=== PATIENT | male | born 1955 ===

== ENCOUNTER 2021-05-25 10:12 | Outpatient (CLI) | payer MEDICARE, MEDICAID, SELFPAY ==
--- NOTE | ~2021-05-25 | XR_ITS ---
XR chest 2V DATE: 05/25/2021 10:55 INDICATION: COPD, smoker TECHNIQUE: `PA and lateral views COMPARISON: None FINDINGS: Normal heart size. No hilar or mediastinal enlargement. No pulmonary infiltrate or consol idation, pulmonary vascular congestion, pleural effusion or pneumothorax. IMPRESSION: No active cardiopulmonary disease Reviewed, dictated and finalized at location B. OPERATOR
--- NOTE | ~2021-05-25 | XR_ITS ---
EXAMINATION: XR lumbar spine min 4V DATE: 05/25/2021 10:55 INDICATION: Low back pain TECHNIQUE: Anteroposterior, lateral, and bilateral oblique views of the lumbar spine, and cone-down l ateral view of the lumbosacral junction were obtained. COMPARISON: None. FINDINGS: There are 3 mm of retrolisthesis of L5 on S1. Bone alignment is otherwise normal. There is no fracture. There is mild loss of intervertebral disc space height throughout the lumbar spine. Smal l degenerative osteophytes project from the anterior endplates of multiple vertebral bodies. There is mild facet osteoarthritis of the lower lumbar spine. Calcified atherosclerosis is noted. IMPRESSION: 1. Moderate lumbar spondylosis without acute findings. Reviewed, dictated and finalized at location A. ER AND COMPRESSOR ASSEMBLER
== END 2021-05-25 10:13 | disposition home or self-care (01) ==
LOC: ANHIMG 10:24
PROVIDERS: PCP Family Medicine; Visit Provider Family Medicine
DX: J44.9 Chronic obstructive pulmonary disease, unspecified (principal); M47.896 Other spondylosis, lumbar region
CPT/HCPCS: 71046; 72110

== ENCOUNTER 2021-09-28 10:00 | Outpatient (RCR) | payer MEDICARE, MEDICAID, SELFPAY ==
--- NOTE | 2021-08-03 09:13 | PTOPEVAL ---
Thank you for referring Angel Laird to [facility].? The patient is scheduled to be seen for therapy?1 x/week for 6 weeks. Please review, sign, date and return this plan of care DELISA. I agree with and certify that the following plan of care is medically necessary. Referring Physician Date Attending Provider: Pamela Burrows MD Referring Provider: Pamela Burrows MD Diagnosis CVA Onset 5 yrs ago Additional Evaluation Detail He has persistent issues with balance and hand clumsiness. He is also having burning sensation and numbness in both feet. He has not been able to get to physical therapy. Subjective Information He report he had a fall ~ 1 Query Text:As Reported By Patient/ month ago. Family He uses a walker for mobility. He is indep with functional mobility and amb with AD. He sleeps on the couch. His roommate completes grassland conservationist. 2 ABHAY with railing on part of steps. He has a ww and transport wc at home. He performs limited activities at home with most of his time on the couch. He had therapy initially after his CVA. Pain Assessment Lower Back Reported Pain Level 7 Lower Extremity Range of Motion General Lower Extremity Range of Motion Gross Lower Extremity Range of Motion left ankle DF neutral, right Comments ankle DF: -8 dg Cervical and Lumbar Muscle Testing Lumbar Strength Upper Abdominal Strength 3-Fair- Lower Abdominal Strength 3-Fair- Upper Back Extension 3-Fair- Lower Back Extension 3-Fair- Lumbar Functional Strength Comments unable to achieve upright trunk position in standing Lower Extremity Muscle Strength Testing Hip Strength Right Hip Flexion Strength 3+ Fair + Hip Extension Strength 2+ Poor + Hip Abduction Strength 2 Poor Hip Adduction Strength 2 Poor Left Hip Flexion Strength 3+ Fair + Hip Extension Strength 2+ Poor + Hip Abduction Strength 2 Poor Hip Adduction Strength 2 Poor Knee Strength Right Knee Flexion Strength 3- Fair - Knee Extension Strength 4- Good - Left Knee Flexion Strength 3- Fair - Knee Extension Strength 4- Good - Ankle Strength Right Ankle Dorsiflexion Strength 4- Good - Ankle Eversion Strength
--- NOTE | 2021-08-24 11:42 | PTOPEVAL ---
Physical Therapy Progress Note Thank you for referring Angel Laird to [facility].? Pt referred to therapy due to buttermaker continuous churn impairments related to CVA ~5 yrs ago. He has attended 4 therapy visits since 08/03/21. He demonstrates decline with functional mobility for balance, ambulation and functional mobility. Demonstrates slight improved LE strength but not able to demonstrate functional changes. He demonstrates significant impairments with LE ROM, LE weakness, decreased posture, balance impairments, functional mobility impairments, and increased LE tone. 5x sit<>stand: 28 sec with ww, decreased to 58 sec 2 min walk test: 10 ft with ww, rm 5 ft today Martinez balance: , declined to Assessment: Pt presents to therapy with impairments consistent with buttermaker continuous churn CVA limitations with force production impairment, joint restriction, abnormal tone, and muscle weakness. He is at a 100% risk for falls based on his objective assessment. He requires additional skilled therapy services to address his functional limitations, improve his mobility and provide skilled teaching for a HEP and necessary equipment. He would benefit from AFO to improve his ankle/LE support and position with ambulation. The patient is scheduled to be seen for therapy? 1 x/week for 4 weeks. Please review, sign, date and return this plan of care DELISA. I agree with and certify that the following plan of care is medically necessary. Referring Physician Date Attending Provider: Pamela Burrows MD Referring Provider: Pamela Burrows MD Diagnosis CVA Onset 5 yrs ago Additional Evaluation Detail He has persistent issues with balance and hand clumsiness. He is also having burning sensation and numbness in both feet. He has not been able to get to physical therapy. Subjective Information Denies any falls since Query Text:As Reported By Patient/ starting therapy. He is Family walking with his walker 2-3x/ day for 10-15 ft. States he is performing his HEP. Pain Assessment Lower Back Reported Pain Level 6 Pain Description Aching Pain Frequency Chronic,Continuous Pain Score Pain Score 6: Self Report Lower Extremity Muscle Strength Testing Hip Strength Right Hip Flexion Strength 3+ Fair + Left Hip Flexion Strength 3+ Fair + Knee Strength Right Knee Flexion Strength 3- Fair - Knee Extension Strength 4 Good Knee Strength Comments hamstring tested seated Left Knee Flexion Strength 3+ Fair + Knee Extension Strength 4- Good - Knee Strength Comments hamstring tested seated Ankle Strength Right Ankle Dorsiflexion Strength 4 Good Ankle Eversion Strength 4- Good - Ankle Inversion Strength 3 Fair Left Ankle Dorsiflexion Strength 4 Good Ankle Eversion Strength 4 Good
--- NOTE | 2021-09-28 11:00 | PTOPEVAL ---
PHYSICAL THERAPY DISCHARGE REPORT 09-28-21 Refer to the clinical summary below, for his status today, compared to the last reeval. Discharge PT services; the goals were partially met. He is to continue with his HEP and increase walking/activity as tolerated. Thank you for referring Angel Laird to [facility] [place]. Please review, sign, date and return this plan of care DELISA. I agree with and certify that the following plan of care is medically necessary. 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 Query Text:As Reported By Patient/ report: has not had any falls Family at home; is using the walker when walking; goes 10-15' in the house; when Jhoan is at work, he stays on the couch and does not do anything; also sleeps on the couch, which is broken down and looking for another couch; Pain Assessment Pain Scale Pain Scale Used Numeric (1 - 10) Self Report Pain Assessment Lower Back Reported Pain Level 7 Pain Description Aching Pain Frequency Chronic,Continuous Pain Score Pain Score 7: Self Report Additional Pain Score Comments reinforced positioning changes during day, to decrease pain-- NOT stay on couch all day and not do anything; Interventions Used Interventions Used By Clinicians Education,Electrical Stimulation,Exercise,Heat Pain Relief Interventions Used By Lying Supine Patient Gross Lower Extremity Strength functional strength testing: - sitting: ankle DF R to (-10 ')/ L to 0' x 15 reps;R and L knee extension to 0' x 10 reps; R and L hip flexion x 12 reps - side lying hip abduction L to 0-5' x 10/ R to 0' x 8 reps ; verbal review of HEP, added: sitting: ankle pumps, knee ext , hip flexion and side lying hip abduction; reinforced increased walking at home; Martinez Balance Assessment Sitting to Standing Independent w/Hands Unsupported Stance Ability Several Tries, 30 seconds Sitting Unsupported, Feet on Floor Safely- 2 minutes Standing to Sitting
== END 2021-09-29 10:16 | disposition home or self-care (01) ==
LOC: ANHPT 10:00
PROVIDERS: PCP Family Medicine; Referring Provider Family Medicine; Visit Provider Family Medicine
DX: R26.89 Other abnormalities of gait and mobility (principal); I63.9 Cerebral infarction, unspecified
CPT/HCPCS: 97014; 97110; 97112; 97116; 97162; 97530; G0283

== ENCOUNTER 2023-02-16 13:39 | Outpatient (CLI) | payer MEDICARE, MEDICAID, SELFPAY ==
[2023-02-16 14:41] LABS: Basophils Percent Auto 0.6 % (0.2-1.2); Eosinophils Absolute Auto 0.2 K/mm3 (0-0.3); Eosinophils Percent Auto 2.4 % (0-4.4); Hematocrit 43.6 % (42.0-52.0); Hemoglobin 14.3 g/dL (14.0-18.0); Immature Granulocyte Absolute 0.02 K/mm3 (0.00-0.031); Immature Granulocyte Percent A 0.3 % (0-0.5); Lymphocytes Absolute Auto 1.86 K/mm3 (0.9-3.2); Lymphocytes Percent Auto 27.6 % (18.3-44.2); Mean Corpuscular HGB Conc 32.8 g/dl (32-36); Mean Corpuscular Hemoglobin 31.7 pg (26-34); Mean Corpuscular Volume 96.7 fl (80-100); Mean Platelet Volume 8.9 fl (7.4-10.4); Monocytes Absolute Auto 0.5 K/mm3 (0.1-0.6); Monocytes Percent Auto 7.4 % (2.6-8.5); Neutrophils Absolute Auto 4.2 K/mm3 (1.3-6.7); Neutrophils Percent Auto 61.7 % (45.5-73.1); Platelet Count Result 264 k/mm3 (150-375); Red Blood Count 4.51 M/mm3 (4.6-6.20); Red Cell Distribution Width 13.3 % (11.5-14.5); White Blood Count 6.8 K/mm3 (4.5-10.0)
[2023-02-16 14:57] LABS: Alanine Aminotransferase 20 U/L (6-50); Albumin Level 4.4 g/dL (3.5-5.1); Alkaline Phosphatase 76 U/L (38-126); Anion Gap 12 mmol/L (8-16); Aspartate Amino Transferase 28 U/L (17-59); Bilirubin,Total 0.8 mg/dL (0.2-1.3); Blood Urea Nitrogen 17 mg/dL (9-20); Calcium 9.7 mg/dL (8.4-10.2); Carbon Dioxide 21 mmol/L (22-30); Chloride 101 mmol/L (98-107); Cholesterol 164 mg/dL (0-200); Estimated Glomerular Filt Rate > 60; Glucose 74 mg/dL (65-110); HDL Direct 44 mg/dL; Potassium 4.5 mmol/L (3.4-5.0); Sodium 134 mmol/L (137-145); Triglycerides 89 mg/dL (<150)
[2023-02-16 15:08] LABS: LDL Cholesterol Direct 88 mg/dL
[2023-02-16 15:27] LABS: Prostate Specific Antigen 1.2 ng/mL (< OR = 4.0)
== END 2023-02-16 13:40 | disposition home or self-care (01) ==
LOC: ANHLAB 13:45
PROVIDERS: PCP Family Medicine; Visit Provider Physician Assistant Medical
DX: Z12.5 Encounter for screening for malignant neoplasm of prostate (principal); D64.9 Anemia, unspecified; E78.2 Mixed hyperlipidemia; E53.8 Deficiency of other specified B group vitamins
CPT/HCPCS: 36415; 80053; 80061; 82607; 84153; 85025; G0103

== ENCOUNTER 2024-06-22 23:33 | Inpatient (IN) | payer OTHER, SELFPAY ==
--- NOTE | ~2024-06-22 | CT_ITS ---
CT OF right shoulder EXAMINATION: CT shoulder RT wo con DATE: 06/23/2024 17:45 INDICATION: Fracture TECHNIQUE: Computed tomography (CT) of the right shoulder was performed without intravenous contrast. Automated exposure control and iterative reconstruction technique were employed. The dose-length pro duct was 184.38 mGy-cm. COMPARISON: X-ray right shoulder, same date FINDINGS: Limitations: None Bones: The AC joint and glenohumeral joint are aligned. Comminuted fracture of the distal clavicle, w ith one half shaft width anterior displacement and anterior angulation of the distal dominant fragmen t. Multiple distracted fragments are noted inferiorly. The distance between the coracoid and majority of the clavicle is increased measuring 17 mm. One of the inferior fragments probably represents infe rior avulsion of the origin of the coracoclavicular ligament. Fracture lines run close to but not def initively within the AC joint. There are no erosive or destructive bony lesions. Soft Tissues: Soft tissue swelling about the distal clavicle. No evidence of mass or fluid collectio n. Fluid: No significant fluid within the joint capsule or surrounding bursal spaces. IMPRESSION: Comminuted, mildly displaced and angulated extra-articular fracture of the distal clavicle, with like ly avulsion of the origin of the coracoclavicular ligament. Reviewed, dictated and finalized at location K. IMPRESSION: Comminuted, mildly displaced and angulated extra-articular fracture of the dist al clavicle, with likely avulsion of the origin of the coracoclavicular ligamen t.
--- NOTE | ~2024-06-22 | US_ITS ---
RIGHT LOWER EXTREMITY VENOUS ULTRASOUND Ordering provider: Vaishali Sanchez APRN History: . Pain . Comparison: None. FINDINGS: --COMMON FEMORAL: Patent and free of thrombus. Normal compressibility, phasic flow and augmentation. --PROXIMAL SUPERFICIAL FEMORAL: Patent and free of thrombus. Normal compressibility, phasic flow and augmentation. --DISTAL SUPERFICIAL FEMORAL: Patent and free of thrombus. Normal compressibility, phasic flow and au gmentation. --POPLITEAL: Patent and free of thrombus. Normal compressibility, phasic flow and augmentation. --POSTERIOR TIBIAL: Patent and free of thrombus. Normal compressibility, phasic flow and augmentation . IMPRESSION: Negative right lower extremity venous US. No deep vein thrombosis. Reviewed, dictated and finalized at location A.
--- NOTE | ~2024-06-22 | XR_ITS ---
Right elbow Technique: AP and lateral views were obtained. Clinical History: Pain Findings: No acute fracture or dislocation is seen. Osseous alignment is anatomic. Joint spaces are p reserved. There is no displacement of the fat pads, and soft tissues are unremarkable. Impression: Unremarkable radiographs. Reviewed, dictated and finalized at location . Impression: Unremarkable radiographs.
--- NOTE | ~2024-06-22 | CT_ITS ---
Non-contrast Head CT History: Head injury Technique: Axial non-contrast imaging of the brain was performed. Dose reduction technique was used on this scan by utilizing automated exposure control and iterative reconstruction technique. The dose -length product (DLP) was 983.67 mGy-cm. Findings: There is no evidence of intracranial hemorrhage, mass lesion, or acute infarct. Brain par enchyma appears normal. The ventricles and subarachnoid spaces are normal in size. The calvarium ap pears normal. The visualized paranasal sinuses and mastoid air cells are clear. Impression: No significant abnormality seen. Reviewed, dictated and finalized at location . Impression: No significant abnormality seen.
--- NOTE | ~2024-06-22 | XR_ITS ---
Right Shoulder Technique: AP and scapular Y views were obtained. Clinical History: Pain Findings: There is acute fracture of the distal clavicle, minimally displaced. No other fracture or d islocation seen. Osseous alignment is anatomic. The glenohumeral and acromioclavicular joint spaces a re preserved. Soft tissues are unremarkable. Impression: Acute mildly displaced fracture of the distal right clavicle. Reviewed, dictated and finalized at location . Impression: Acute mildly displaced fracture of the distal right clavicle.
--- NOTE | ~2024-06-22 | CT_ITS ---
CT Scan of the Chest without Contrast: Clinical Indication: Status post fall, scapular fracture Technique: Contiguous sections were acquired throughout the chest without intravenous contrast. Dose reduction technique was used on this scan by utilizing automated exposure control and iterative recon struction technique. The dose-length product (DLP) was 252.86 mGy-cm. Findings: There is no evidence of any significant mediastinal, hilar or axillary lymphadenopathy. Coronary billy ry calcifications are present.. Pectus excavatum deformity noted. There is no evidence of pleural or pericardial effusion. The lungs are clear. No pulmonary nodules or infiltrates are noted. Images through the upper abdomen reveal no abnormalities. Partially imaged comminuted acute fracture the distal right clavicle noted. Impression: Partially imaged acute fracture of the distal right clavicle. Pectus excavatum deformity. Reviewed, dictated and finalized at [facility]. Impression: Partially imaged acute fracture of the distal right clavicle. Pectus excavatum deformity.
--- NOTE | ~2024-06-22 | XR_ITS ---
XR hip RT 2V w AP pelvis Ordering provider: Vaishali Sanchez APRN History: . Trauma . Comparison: None. FINDINGS: BONES: No acute fracture or dislocation. HIP JOINT SPACES: Severe narrowing of both hips. SACROILIAC JOINT SPACES/LUMBAR SPINE: The sacroiliac joint spaces are normal. Mild degenerative toscano es of the visualized lower lumbar spine. PUBIC SYMPHYSIS: Normal. SOFT TISSUES: Normal. IMPRESSION: No acute osseous abnormality pelvis and right hip. Bilateral severe hip osteoarthritic changes Reviewed, dictated and finalized at location A. IMPRESSION: No acute osseous abnormality pelvis and right hip. Bilateral severe hip osteoar thritic changes
--- NOTE | ~2024-06-22 | XR_ITS ---
AP and lateral views of the right tibia/fibula Clinical History: Trauma Findings: No acute fracture or dislocation is seen. Osseous alignment is anatomic. Joint spaces are p reserved without significant erosive or degenerative change. Soft tissues are unremarkable. Impression: Unremarkable right tib-fib radiographs. Reviewed, dictated and finalized at [facility]. Impression: Unremarkable right tib-fib radiographs.
--- NOTE | ~2024-06-22 | CT_ITS ---
Noncontrast CT scan of the cervical spine Technique: Multiple contiguous axial [address] images of the cervical spine were obtained and rec onstructed in 2D sagittal and coronal planes on the acquisition scanner. Dose reduction technique was used on this scan by utilizing automated exposure control, adjustment of the mA and/or kV according to patient size. The dose-length product (DLP) was 213.59 mGy-cm. Clinical History: Pain Findings: No fractures or dislocations in the cervical spine. There is acute fracture of the distal clavicle, comminuted and mildly displaced. There is mild reversal of normal cervical lordosis. There is severe degenerative disc narrowing at C5-C6 and C6-C7. There is moderate degenerative disc narrowi ng at C3-C4 and C4-C5. There is degenerative change at the articulation of the odontoid process with the anterior arch of C1. There is right facet arthropathy at C2-C3 with minimal right neural foramina l narrowing. There is prominent left facet arthropathy at C3-C4 with left neural foraminal narrowing. There is mild right neural foraminal narrowing as well. Probable mild canal stenosis with posterior disc bulge at this level. At C4-C5, there is bilateral facet arthropathy, bilateral neural foraminal narrowing. There is minima l disc bulge with possible minimal canal stenosis. At C5 and C6, there is mild facet arthropathy with disc ossify complex with bilateral neural foramina l narrowing and moderate canal stenosis. At C6-C7, there is disc ossify complex with severe bilateral neural foraminal narrowing and moderate to severe canal stenosis. No prevertebral soft tissue swelling. Impression: No fracture or subluxation of the cervical spine. Acute fracture of the distal right clavicle, as detailed above. Severe degenerative spondylosis, as above. Reviewed, dictated and finalized at [facility]. Impression: No fracture or subluxation of the cervical spine. Acute fracture of the distal right clavicle, as detailed above. Severe degenerative spondylosis, as above.
[2024-06-22 23:35] VITALS: PULSE 87; RESP 16; TEMP 37.1; O2SAT 99
[2024-06-22 23:48] VITALS: BP 122/80; PULSE 81; RESP 15; O2SAT 100
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
[2024-06-23] MEDS: HYDROcodone/acetaminophen (*CRX) 5-325 MG TABLET 1 TAB PO ×4 (02:01→18:59)
[2024-06-23] MEDS: TETANUS,DIPHTHERIA,AC PERTUSSIS ADULT (0.5 ML) BOOSTRIX IM (02:01)
[2024-06-23 02:05] VITALS: PULSE 68; RESP 15; O2SAT 100
[2024-06-23 03:46] LABS: Basophils Percent Auto 0.2 % (0.2-1.2); Eosinophils Absolute Auto 0.1 K/mm3 (0-0.3); Eosinophils Percent Auto 0.9 % (0-4.4); Hematocrit 37.4 % (42.0-52.0); Hemoglobin 12.5 g/dL (14.0-18.0); Immature Granulocyte Absolute 0.05 K/mm3 (0.00-0.031); Immature Granulocyte Percent A 0.5 % (0-0.5); Lymphocytes Absolute Auto 0.95 K/mm3 (0.9-3.2); Lymphocytes Percent Auto 10.1 % (18.3-44.2); Mean Corpuscular HGB Conc 33.4 g/dl (32-36); Mean Corpuscular Hemoglobin 31.3 pg (26-34); Mean Corpuscular Volume 93.7 fl (80-100); Mean Platelet Volume 8.7 fl (7.4-10.4); Monocytes Absolute Auto 0.6 K/mm3 (0.1-0.6); Monocytes Percent Auto 6.6 % (2.6-8.5); Neutrophils Absolute Auto 7.7 K/mm3 (1.3-6.7); Neutrophils Percent Auto 81.7 % (45.5-73.1); Platelet Count Result 196 k/mm3 (150-375); Red Blood Count 3.99 M/mm3 (4.6-6.20); Red Cell Distribution Width 13.5 % (11.5-14.5); White Blood Count 9.4 K/mm3 (4.5-10.0)
[2024-06-23 03:48] VITALS: BP 128/60; PULSE 69; RESP 15; O2SAT 100
[2024-06-23] MEDS: MORPHINE SULFATE (*CRX) 2 MG/ML INJ IV PUSH ×2 (03:50→10:21)
[2024-06-23] MEDS: ONDANSETRON INJ 4 MG/2 ML VIAL IV PUSH (03:50)
[2024-06-23 03:56] LABS: Alanine Aminotransferase 32 U/L (6-50); Albumin Level 3.8 g/dL (3.5-5.1); Alkaline Phosphatase 120 U/L (38-126); Anion Gap 8 mmol/L (4-12); Aspartate Amino Transferase 34 U/L (17-59); Bilirubin,Total 0.5 mg/dL (0.2-1.3); Blood Urea Nitrogen 19 mg/dL (9-20); Calcium 9.4 mg/dL (8.4-10.2); Carbon Dioxide 27 mmol/L (22-30); Chloride 100 mmol/L (98-107); Estimated CRCL calculation 80 ml/min; Estimated Glomerular Filt Rate > 60; Glucose 103 mg/dL (65-110); Potassium 4.3 mmol/L (3.4-5.0); Sodium 135 mmol/L (137-145)
[2024-06-23 06:30] VITALS: BMI 18.1
--- NOTE | 2024-06-23 06:37 | ADMGEN ---
This patient, Angel Laird, was admitted to Medical Room 245-. Patient/family oriented to hospital policies and general routines including ID bracelet, bed and alarms, visiting hours, pain management, procedures, bathroom and other care routines, personal items, smoking policy, room service/diet, and visiting hours. Information on how to activate the Rapid Response Team has been discussed. Patient/Family are encouraged to report perceived risks to care and to ask questions if they do not understand what they are told or what they should do.
[2024-06-23 06:58] VITALS: BP 104/61; PULSE 71; RESP 18; TEMP 36.9; O2SAT 96
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
[2024-06-23] MEDS: NICOTINE (*PBKC) 21 MG PATCH 1 PATCH TRANSDERM (09:29)
[2024-06-23] MEDS: PANTOPRAZOLE 40 MG TABLET PO (09:29)
--- NOTE | 2024-06-23 10:49 | PCOTNOTE ---
PT attempted to work with pt but pt was unable to weightbear onto R LE and complains of increased pain there. Pt has not had any imaging done of that leg. Pt is also waiting on an ortho consult for his R clavicle fx so will hold OT eval at this time.
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
--- NOTE | 2024-06-23 15:32 | PC.NURSE ---
On 06/23/24, the ENTRY LEVEL PARALEGAL, Amanda Chinchilla, provided care and completed Ember documentation on this patient. I have reviewed the ENTRY LEVEL PARALEGAL's documentation and agree with the findings.
[2024-06-23 16:02] VITALS: BP 103/59; PULSE 64; RESP 18; TEMP 36.3; O2SAT 96
[2024-06-23 23:30] VITALS: BP 126/52; PULSE 68; RESP 16; TEMP 36.8; O2SAT 96
[2024-06-24] MEDS: HYDROcodone/acetaminophen (*CRX) 5-325 MG TABLET 1 TAB PO ×3 (06:11→20:10)
[2024-06-24 06:18] VITALS: BP 120/69; PULSE 80; RESP 16; TEMP 37.1; O2SAT 94
--- NOTE | 2024-06-24 07:39 | P.PNIM_ITS ---
Progress Note: A&P Assessment and Plan (1) Closed fracture of distal clavicle: Qualifiers: Encounter type: initial encounter Fracture alignment: displaced Laterality: right Qualified Code(s): S42.031A - Displaced fracture of lateral end of right clavicle, initial encounter for closed fracture Code(s): S42.033A - Displaced fracture of lateral end of unspecified clavicle, initial encounter for closed fracture Status: Acute Assessment and Plan: Patient with mechanical fall to right shoulder * Imaging: Acute mildly displaced fracture of the distal right clavicle * Pain control * Sling placed * Ortho consulted * PT/OT uses walker for ambulation may need rehab for placement 06/24/24: * Seen by ortho no surgical inntervention F/U O/P in their clinic * Tib/FIb with no acute fractures (2) Fracture of scapular body: Qualifiers: Encounter type: initial encounter Fracture alignment: nondisplaced Fracture type: closed Laterality: right Qualified Code(s): S42.114A - Nondisplaced fracture of body of scapula, right shoulder, initial encounter for closed fracture Code(s): S42.113A - Displaced fracture of body of scapula, unspecified shoulder, initial encounter for closed fracture Status: Acute Assessment and Plan: SEE ABOVE (3) Alcohol abuse: Code(s): F10.10 - Alcohol abuse, uncomplicated Status: Acute Assessment and Plan: * Last drink 48hrs * Thiamine, folic acid, and multi-vitamin * PPI daily * librium if indicated * Ativan PRN for seizure activity * CIWA daily * Monitor and replenish electrolytes as needed (4) Hyperlipidemia: Qualifiers: Hyperlipidemia type: mixed hyperlipidemia Qualified Code(s): E78.2 - Mixed hyperlipidemia Code(s): E78.5 - Hyperlipidemia, unspecified Status: Acute Assessment and Plan: * Resume statin (5) Arthritis: Code(s): M19.90 - Unspecified osteoarthritis, unspecified site Status: Acute Assessment and Plan: * Resumed Baclofen (6) Fall from ground level: Code(s): W18.30XA - Fall on same level, unspecified, initial encounter Status: Acute Assessment and Plan: * Mechanical fall * PT/OT (7) COPD (chronic obstructive pulmonary disease): Qualifiers: COPD type: unspecified COPD Qualified Code(s): J44.9 - Chronic obstructive pulmonary disease, unspecified Code(s): J44.9 - Chronic obstructive pulmonary disease, unspecified Status: Acute Assessment and Plan: * Resume PRN inhalers (8) Tobacco abuse: Code(s): Z72.0 - Tobacco use Status: Acute Assessment and Plan: * smoking cessation education * Nicotine patch * remove patch at night Plan Code status: Full code per patient DVT prophylaxis: SCD Stress ulcer prophylaxis: Protonix 40 daily PT/OT notes: PT/OT pending Disposition: Patient admitted to the medical unit for evaluation by PT/OT after a fall at home with a right clavicle fracture patient uses walker for ambulation some concern he will be unable to care for self care coordination has been consulted for possible rehab placement. Time Spent With Patient Time with patient: 15 - 25 minutes Subjective Date/time seen: 06/24/24 07:39 Interval history: Patient admitted for fall with right clavicle fracture 06/24/24: Patient still with moderate pain to right shoulder and pain to RLE tib/fib was negative for acute fracture. Patient denied any CP,SOB, N/V and had good appetite. Currently waiting on placement to rehab Review of Systems Review of Systems: All systems reviewed & are unremarkable except as noted in HPI and below Exam Const: General: comfortable HENMT: Mouth: Yes moist mucous membranes Eyes: General: appearance normal, both eyes and all related structures Pupils: Equal, round and reactive pupils present Neck: Neck: supple and no JVD Resp: Effort & Inspection: normal respiratory effort Cardio: Rate: regular rate Rhythm: regular rhythm GI: Auscultation: normal bowel sounds Skin: General skin exam: normal color, no rashes or lesions noted and wounds noted (Elbow) Wounds: wounds noted (Elbow) Neuro: Cranial nerves: Yes Equal, round and reactive pupils present Speech: normal speech Motor exam (neuro): Abnormal motor strength present Other: Unsteady gait uses walker for ambulation Extrem: Other: Sling to right arm Psych: Mental Status: mental status grossly normal Objective Data Vital Signs Vital Signs: Vital Signs - 24 hr 06/23/24 08:00 06/23/24 10:23 06/23/24 14:41 Temperature Pulse Rate Respiratory Rate Blood Pressure Pulse Oximetry Oxygen Delivery Room Air Room Air Room Air 06/23/24 16:02 06/23/24 20:00 06/23/24 23:30 Temperature 97.4 F L 98.2 F Pulse Rate 64 68 Respiratory Rate 18 16 Blood Pressure 103/59 L 126/52 L Pulse Oximetry 96 96 Oxygen Delivery Room Air 06/24/24 06:18 Temperature 98.8 F Pulse Rate 80 Respiratory Rate 16 Blood Pressure 120/69 Pulse Oximetry 94 Oxygen Delivery Intake/Output Intake/Output: Intake & Output 06/21/24 06/22/24 06/23/24 06/24/24 23:59 23:59 23:59 23:59 Intake Total 580 250 Output Total 300 400 Balance 280 -150 Meds/Results Medications: Active Medications Generic Name Dose Route Start Last Admin Trade Name Freq PRN Reason Stop Dose Admin Acetaminophen 650 mg 06/23/24 04:06 Acetaminophen 325 Mg Tablet PO Q4H PRN Mild Pain (1-3) or Fever Hydrocodone Bitart/Acetaminophen 1 tab 06/23/24 04:06 06/24/24 06:11 Hydrocodone/Acetaminophen (*Crx) 5-325 Mg Tablet PO 1 tab Q4H PRN Administration Pain Rated 4-6 Albuterol 1 puff 06/24/24 07:37 Albuterol Sulfate (*Sp) Aerosol 1 Puff INHALATION Q4H PRN shortness of breath or wheezing Dextrose 12.5 gm 06/23/24 04:06 Dextrose 50% 25 Gm/50 Ml Syringe IV PUSH PRN PRN Hypoglycemia Protocol Folic Acid 1 mg 06/24/24 09:00 Folic Acid 1 Mg Tablet PO DAILY [facility] Glucagon 1 mg 06/23/24 04:06 Glucagon For Inj 1 Mg Vial IM PRN PRN Hypoglycemia Protocol Glucose 15 gm 06/23/24 04:06 Glucose Oral Gel 15 Gm Of Glucse In 37.5 Gm Tube PO PRN PRN Hypoglycemia Protocol Hydroxyzine HCl 25 mg 06/24/24 07:37 Hydroxyzine Hcl 25 Mg Tablet PO QHS PRN insomnia Dextrose 1,000 mls @ 100 mls/hr 06/23/24 04:06 Dextrose 5% 1,000 Ml IVPB PRN PRN Hypoglycemia Protocol Lovastatin 40 mg 06/24/24 09:00 Lovastatin 20 Mg Tablet PO DAILY [facility] Morphine Sulfate 2 mg 06/23/24 04:06 06/23/24 10:21 Morphine Sulfate (*Crx) 2 Mg/Ml Inj IV PUSH 2 mg Q2H PRN Administration Pain Rated 7-10 Nicotine 1 patch 06/23/24 09:00 06/23/24 09:29 Nicotine (*Pbkc) 21 Mg Patch TRANSDERM 1 patch DAILY LINDSAY Administration Pantoprazole Sodium 40 mg 06/23/24 09:00 06/23/24 09:29 Pantoprazole 40 Mg Tablet PO 40 mg QAM LINDSAY Administration Polyethylene Glycol 17 gm 06/23/24 09:00 06/23/24 09:31 Polyethylene Glycol 3350 17 Gm Powd.Pack PO Not Given QAM [facility] Senna/Docusate Sodium 1 tab 06/23/24 21:00 06/23/24 21:12 Senna/Docusate Sodium Tablet PO Not Given HS [facility] Thiamine HCl 100 mg 06/24/24 09:00 Thiamine Hcl 100 Mg Tablet PO DAILY [facility] Radiology Results: ITS Impressions Shoulder X-Ray 06/23/24 06:17 Impression: Acute mildly displaced fracture of the distal right clavicle. Cervical Spine CT 06/23/24 06:20 Impression: No fracture or subluxation of the cervical spine. Acute fracture of the distal right clavicle, as detailed above. Severe degenerative spondylosis, as above. Head CT 06/23/24 06:22 Impression: No significant abnormality seen. Elbow X-Ray 06/23/24 06:23 Impression: Unremarkable radiographs. Chest CT 06/23/24 06:40 Impression: Partially imaged acute fracture of the distal right clavicle. Pectus excavatum deformity. Tibia/Fibula X-Ray 06/23/24 13:19 Impression: Unremarkable right tib-fib radiographs. Shoulder CT 06/23/24 18:00 IMPRESSION: Comminuted, mildly displaced and angulated extra-articular fracture of the distal clavicle, with likely avulsion of the origin of the coracoclavicular ligament. Quality VTE Prophylaxis VTE prophylaxis: mechanical ordered -Patient's previous records reviewed on admission -ER notes reviewed in detail on admission -discussed all findings and current treatment plan with patient/Family/POA -Consultations reviewed for recommendations -Patient's disposition for safe discharge discussed with family service caseworker Dictation performed by [employer] direct speech recognition software, therefore tree worker variants and typographical errors may occur. Hospitalist [facility] Advance Care Plan I have confirmed that the patient's Advanced Care Plan is present, code status is documented, or surrogate decision maker is listed in patient medical record.: Yes Medication Reconciliation I have utilized all available resources to obtain, update and review the patients current medications (includes all prescriptions, OTC, herbals, cannabis, and nutritional supplements).: Yes The patient is not eligible for med reconciliation; the patient is in a emergent medical situation where delaying treatment would jeopardize the patients health.: No
[2024-06-24] MEDS: NICOTINE (*PBKC) 21 MG PATCH 1 PATCH TRANSDERM (08:15)
[2024-06-24] MEDS: THIAMINE HCL 100 MG TABLET PO (08:16)
[2024-06-24] MEDS: PANTOPRAZOLE 40 MG TABLET PO (08:16)
[2024-06-24] MEDS: LOVASTATIN 20 MG TABLET 40 MG PO (08:16)
[2024-06-24] MEDS: FOLIC ACID 1 MG TABLET PO (08:16)
[2024-06-24] MEDS: ALBUTEROL SULFATE (*SP) AEROSOL 1 PUFF INHALATION (09:37)
[2024-06-24 12:00] VITALS: BP 124/61
[2024-06-24 14:59] VITALS: BP 101/51; PULSE 68; RESP 16; TEMP 36.8; O2SAT 96
[2024-06-24 16:00] VITALS: BP 114/51
[2024-06-24 20:00] VITALS: BP 98/85; PULSE 95
[2024-06-24 22:00] VITALS: BP 98/85; PULSE 94; RESP 16; O2SAT 98
[2024-06-25] MEDS: HYDROcodone/acetaminophen (*CRX) 5-325 MG TABLET 1 TAB PO ×4 (01:12→21:01)
[2024-06-25 04:57] LABS: Hematocrit 36.9 % (42.0-52.0); Hemoglobin 12.6 g/dL (14.0-18.0); Mean Corpuscular HGB Conc 34.1 g/dl (32-36); Mean Corpuscular Hemoglobin 32.4 pg (26-34); Mean Corpuscular Volume 94.9 fl (80-100); Mean Platelet Volume 9.1 fl (7.4-10.4); Platelet Count Result 180 k/mm3 (150-375); Red Blood Count 3.89 M/mm3 (4.6-6.20); Red Cell Distribution Width 13.9 % (11.5-14.5); White Blood Count 3.2 K/mm3 (4.5-10.0)
[2024-06-25 05:17] VITALS: BP 127/69; PULSE 64; RESP 16; TEMP 36.7; O2SAT 94
[2024-06-25 05:20] LABS: Alanine Aminotransferase 52 U/L (6-50); Albumin Level 3.7 g/dL (3.5-5.1); Alkaline Phosphatase 124 U/L (38-126); Anion Gap 8 mmol/L (4-12); Aspartate Amino Transferase 64 U/L (17-59); Bilirubin,Total 0.7 mg/dL (0.2-1.3); Blood Urea Nitrogen 15 mg/dL (9-20); Carbon Dioxide 26 mmol/L (22-30); Chloride 102 mmol/L (98-107); Estimated CRCL calculation 69 ml/min; Estimated Glomerular Filt Rate > 60; Glucose 101 mg/dL (65-110); Potassium 4.7 mmol/L (3.4-5.0); Sodium 136 mmol/L (137-145)
[2024-06-25] MEDS: LOVASTATIN 20 MG TABLET 40 MG PO (08:11)
[2024-06-25] MEDS: PANTOPRAZOLE 40 MG TABLET PO (08:11)
[2024-06-25] MEDS: THIAMINE HCL 100 MG TABLET PO (08:11)
[2024-06-25] MEDS: FOLIC ACID 1 MG TABLET PO (08:11)
[2024-06-25] MEDS: NICOTINE (*PBKC) 21 MG PATCH 1 PATCH TRANSDERM (08:12)
[2024-06-25] MEDS: MORPHINE SULFATE (*CRX) 2 MG/ML INJ IV PUSH (10:19)
[2024-06-25 14:00] VITALS: BP 109/65; PULSE 79; RESP 12; TEMP 36.5; O2SAT 96
--- NOTE | 2024-06-25 14:02 | P.PNIM_ITS ---
Progress Note: A&P Assessment and Plan (1) Closed fracture of distal clavicle: Qualifiers: Encounter type: initial encounter Fracture alignment: displaced Laterality: right Qualified Code(s): S42.031A - Displaced fracture of lateral end of right clavicle, initial encounter for closed fracture Code(s): S42.033A - Displaced fracture of lateral end of unspecified clavicle, initial encounter for closed fracture Status: Acute Assessment and Plan: Patient with mechanical fall to right shoulder * Imaging: Acute mildly displaced fracture of the distal right clavicle * Pain control * Sling placed * Ortho consulted * PT/OT uses walker for ambulation may need rehab for placement 06/24/24: * Seen by ortho no surgical intervention F/U O/P in their clinic * Tib/FIb with no acute fractures 06/25: * doppler pending still reporting a lot of pain to RLE (2) Fracture of scapular body: Qualifiers: Encounter type: initial encounter Fracture alignment: nondisplaced Fracture type: closed Laterality: right Qualified Code(s): S42.114A - Nondisplaced fracture of body of scapula, right shoulder, initial encounter for closed fracture Code(s): S42.113A - Displaced fracture of body of scapula, unspecified shoulder, initial encounter for closed fracture Status: Acute Assessment and Plan: SEE ABOVE (3) Alcohol abuse: Code(s): F10.10 - Alcohol abuse, uncomplicated Status: Acute Assessment and Plan: * Last drink 48hrs * Thiamine, folic acid, and multi-vitamin * PPI daily * librium if indicated * Ativan PRN for seizure activity * CIWA daily * Monitor and replenish electrolytes as needed (4) Hyperlipidemia: Qualifiers: Hyperlipidemia type: mixed hyperlipidemia Qualified Code(s): E78.2 - Mixed hyperlipidemia Code(s): E78.5 - Hyperlipidemia, unspecified Status: Acute Assessment and Plan: * Resume statin (5) Arthritis: Code(s): M19.90 - Unspecified osteoarthritis, unspecified site Status: Acute Assessment and Plan: * Resumed Baclofen (6) Fall from ground level: Code(s): W18.30XA - Fall on same level, unspecified, initial encounter Status: Acute Assessment and Plan: * Mechanical fall * PT/OT (7) COPD (chronic obstructive pulmonary disease): Qualifiers: COPD type: unspecified COPD Qualified Code(s): J44.9 - Chronic obstructive pulmonary disease, unspecified Code(s): J44.9 - Chronic obstructive pulmonary disease, unspecified Status: Acute Assessment and Plan: * Resume PRN inhalers (8) Tobacco abuse: Code(s): Z72.0 - Tobacco use Status: Acute Assessment and Plan: * smoking cessation education * Nicotine patch * remove patch at night Plan Code status: Full code per patient DVT prophylaxis: SCD Stress ulcer prophylaxis: Protonix 40 daily PT/OT notes: PT/OT pending Disposition: Patient admitted to the medical unit for evaluation by PT/OT after a fall at home with a right clavicle fracture patient uses walker for ambulation some concern he will be unable to care for self care coordination has been consulted for possible rehab placement. Time Spent With Patient Time with patient: 15 - 25 minutes Subjective Date/time seen: 06/25/24 14:02 Interval history: Patient admitted for fall with right clavicle fracture 06/25/24: Patient working with PT but RLE pain continues imaging negative for fractures will order doppler to r/o DVT but likely just secondary to fall. Patient denied CP, SOB, N/V. Review of Systems Review of Systems: All systems reviewed & are unremarkable except as noted in HPI and below Exam Const: General: comfortable HENMT: Mouth: Yes moist mucous membranes Eyes: General: appearance normal, both eyes and all related structures Pupils: Equal, round and reactive pupils present Neck: Neck: supple and no JVD Resp: Effort & Inspection: normal respiratory effort Cardio: Rate: regular rate Rhythm: regular rhythm GI: Auscultation: normal bowel sounds Skin: General skin exam: normal color, no rashes or lesions noted and wounds noted (Elbow) Wounds: wounds noted (Elbow) Neuro: Cranial nerves: Yes Equal, round and reactive pupils present Speech: normal speech Motor exam (neuro): Abnormal motor strength present Other: Unsteady gait uses walker for ambulation Extrem: Other: Sling to right arm Psych: Mental Status: mental status grossly normal Objective Data Vital Signs Vital Signs: Vital Signs - 24 hr 06/24/24 14:59 06/24/24 16:00 06/24/24 20:00 Temperature 98.3 F Pulse Rate 68 Pulse Rate [Left Radial] 95 Respiratory Rate 16 Blood Pressure 101/51 L 114/51 L 98/85 L Pulse Oximetry 96 Oxygen Delivery 06/24/24 20:00 06/24/24 22:00 06/25/24 05:17 Temperature 98.0 F Pulse Rate 94 64 Pulse Rate [Left Radial] Respiratory Rate 16 16 Blood Pressure 98/85 L 127/69 Pulse Oximetry 98 94 Oxygen Delivery Room Air 06/25/24 08:00 Temperature Pulse Rate Pulse Rate [Left Radial] Respiratory Rate Blood Pressure Pulse Oximetry Oxygen Delivery Room Air Intake/Output Intake/Output: Intake & Output 06/22/24 06/23/24 06/24/24 06/25/24 23:59 23:59 23:59 23:59 Intake Total 580 1210 730 Output Total 300 1150 700 Balance 280 60 30 Meds/Results Medications: Active Medications Generic Name Dose Route Start Last Admin Trade Name Freq PRN Reason Stop Dose Admin Acetaminophen 650 mg 06/23/24 04:06 Acetaminophen 325 Mg Tablet PO Q4H PRN Mild Pain (1-3) or Fever Hydrocodone Bitart/Acetaminophen 1 tab 06/23/24 04:06 06/25/24 08:11 Hydrocodone/Acetaminophen (*Crx) 5-325 Mg Tablet PO 1 tab Q4H PRN Administration Pain Rated 4-6 Albuterol 1 puff 06/24/24 07:37 06/24/24 09:37 Albuterol Sulfate (*Sp) Aerosol 1 Puff INHALATION 1 puff Q4H PRN Administration shortness of breath or wheezing Dextrose 12.5 gm 06/23/24 04:06 Dextrose 50% 25 Gm/50 Ml Syringe IV PUSH PRN PRN Hypoglycemia Protocol Folic Acid 1 mg 06/24/24 09:00 06/25/24 08:11 Folic Acid 1 Mg Tablet PO 1 mg DAILY LINDSAY Administration Glucagon 1 mg 06/23/24 04:06 Glucagon For Inj 1 Mg Vial IM PRN PRN Hypoglycemia Protocol Glucose 15 gm 06/23/24 04:06 Glucose Oral Gel 15 Gm Of Glucse In 37.5 Gm Tube PO PRN PRN Hypoglycemia Protocol Hydroxyzine HCl 25 mg 06/24/24 07:37 Hydroxyzine Hcl 25 Mg Tablet PO QHS PRN insomnia Dextrose 1,000 mls @ 100 mls/hr 06/23/24 04:06 Dextrose 5% 1,000 Ml IVPB PRN PRN Hypoglycemia Protocol Lovastatin 40 mg 06/24/24 09:00 06/25/24 08:11 Lovastatin 20 Mg Tablet PO 40 mg DAILY LINDSAY Administration Morphine Sulfate 2 mg 06/23/24 04:06 06/25/24 10:19 Morphine Sulfate (*Crx) 2 Mg/Ml Inj IV PUSH 2 mg Q2H PRN Administration Pain Rated 7-10 Nicotine 1 patch 06/23/24 09:00 06/25/24 08:12 Nicotine (*Pbkc) 21 Mg Patch TRANSDERM 1 patch DAILY LINDSAY Administration Pantoprazole Sodium 40 mg 06/23/24 09:00 06/25/24 08:11 Pantoprazole 40 Mg Tablet PO 40 mg QAM LINDSAY Administration Polyethylene Glycol 17 gm 06/23/24 09:00 06/25/24 08:12 Polyethylene Glycol 3350 17 Gm Powd.Pack PO Not Given QAM LINDSAY Senna/Docusate Sodium 1 tab 06/23/24 21:00 06/24/24 20:03 Senna/Docusate Sodium Tablet PO Not Given HS LINDSAY Thiamine HCl 100 mg 06/24/24 09:00 06/25/24 08:11 Thiamine Hcl 100 Mg Tablet PO 100 mg DAILY LINDSAY Administration Radiology Results: ITS Impressions Shoulder X-Ray 06/23/24 06:17 Impression: Acute mildly displaced fracture of the distal right clavicle. Cervical Spine CT 06/23/24 06:20 Impression: No fracture or subluxation of the cervical spine. Acute fracture of the distal right clavicle, as detailed above. Severe degenerative spondylosis, as above. Head CT 06/23/24 06:22 Impression: No significant abnormality seen. Elbow X-Ray 06/23/24 06:23 Impression: Unremarkable radiographs. Chest CT 06/23/24 06:40 Impression: Partially imaged acute fracture of the distal right clavicle. Pectus excavatum deformity. Tibia/Fibula X-Ray 06/23/24 13:19 Impression: Unremarkable right tib-fib radiographs. Shoulder CT 06/23/24 18:00 IMPRESSION: Comminuted, mildly displaced and angulated extra-articular fracture of the distal clavicle, with likely avulsion of the origin of the coracoclavicular liga ment. Hip/Pelvis X-Ray 06/24/24 12:14 IMPRESSION: No acute osseous abnormality pelvis and right hip. Bilateral severe hip osteoarthritic changes Labs Labs: Laboratory Results - last 24 hr 06/25/24 04:06 WBC 3.2 L RBC 3.89 L Hgb 12.6 L Hct 36.9 L MCV 94.9 MCH 32.4 MCHC 34.1 RDW 13.9 Plt Count 180 MPV 9.1 Sodium 136 L Potassium 4.7 Chloride 102 Carbon Dioxide 26 Anion Gap 8 BUN 15 Creatinine 0.78 Estim Creat Clear Calc 69 Estimated GFR > 60 Glucose 101 Calcium 9.0 Total Bilirubin 0.7 AST 64 H ALT 52 H Alkaline Phosphatase 124 Total Protein 7.0 Albumin 3.7 Quality VTE Prophylaxis VTE prophylaxis: mechanical ordered -Patient's previous records reviewed on admission -ER notes reviewed in detail on admission -discussed all findings and current treatment plan with patient/Family/POA -Consultations reviewed for recommendations -Patient's disposition for safe discharge discussed with hospice case manager Dictation performed by [employer] direct speech recognition software, therefore grounds/maintenance specialist variants and typographical errors may occur. Hospitalist MIPS Advance Care Plan I have confirmed that the patient's Advanced Care Plan is present, code status is documented, or surrogate decision maker is listed in patient medical record.: Yes Medication Reconciliation I have utilized all available resources to obtain, update and review the patients current medications (includes all prescriptions, OTC, herbals, cannabis, and nutritional supplements).: Yes The patient is not eligible for med reconciliation; the patient is in a emergent medical situation where delaying treatment would jeopardize the patients health.: No
--- NOTE | 2024-06-25 14:05 | PCPTNOTE ---
attempted PT eval 1400-- pt out of room, gone for doppler of LE.
[2024-06-25 14:09] VITALS: BMI 18.1
[2024-06-25 20:00] VITALS: PULSE 72; RESP 16; O2SAT 97
[2024-06-25] MEDS: SENNA/DOCUSATE SODIUM TABLET 1 TAB PO (21:01)
[2024-06-25 21:49] VITALS: BP 102/74; PULSE 72; RESP 16; TEMP 37.2; O2SAT 97
[2024-06-26 05:37] LABS: Mean Corpuscular HGB Conc 31.7 g/dl (32-36); Mean Corpuscular Hemoglobin 31.3 pg (26-34); Mean Corpuscular Volume 98.6 fl (80-100); Mean Platelet Volume 10.2 fl (7.4-10.4); Platelet Count Result 147 k/mm3 (150-375); Red Blood Count 4.16 M/mm3 (4.6-6.20); Red Cell Distribution Width 13.8 % (11.5-14.5); White Blood Count 4.6 K/mm3 (4.5-10.0)
[2024-06-26 05:56] LABS: Alanine Aminotransferase 52 U/L (6-50); Albumin Level 3.7 g/dL (3.5-5.1); Alkaline Phosphatase 115 U/L (38-126); Anion Gap 9 mmol/L (4-12); Aspartate Amino Transferase 49 U/L (17-59); Bilirubin,Total 0.9 mg/dL (0.2-1.3); Blood Urea Nitrogen 16 mg/dL (9-20); Calcium 9.3 mg/dL (8.4-10.2); Carbon Dioxide 25 mmol/L (22-30); Chloride 100 mmol/L (98-107); Estimated CRCL calculation 70 ml/min; Estimated Glomerular Filt Rate > 60; Glucose 93 mg/dL (65-110); Potassium 4.8 mmol/L (3.4-5.0); Sodium 134 mmol/L (137-145)
[2024-06-26 06:00] VITALS: BP 136/68; PULSE 77; RESP 16; TEMP 36.6; O2SAT 98
[2024-06-26] MEDS: PANTOPRAZOLE 40 MG TABLET PO (08:39)
[2024-06-26] MEDS: polyethylene glycoL 3350 17 GM POWD.PACK PO (08:39)
[2024-06-26] MEDS: FOLIC ACID 1 MG TABLET PO (08:39)
[2024-06-26] MEDS: LOVASTATIN 20 MG TABLET 40 MG PO (08:39)
[2024-06-26] MEDS: NICOTINE (*PBKC) 21 MG PATCH 1 PATCH TRANSDERM (08:39)
[2024-06-26] MEDS: THIAMINE HCL 100 MG TABLET PO (08:39)
[2024-06-26] MEDS: HYDROcodone/acetaminophen (*CRX) 5-325 MG TABLET 1 TAB PO (10:19)
--- NOTE | 2024-06-26 10:32 | P.PNIM_ITS ---
Progress Note: A&P Assessment and Plan (1) Closed fracture of distal clavicle: Qualifiers: Encounter type: initial encounter Fracture alignment: displaced Laterality: right Qualified Code(s): S42.031A - Displaced fracture of lateral end of right clavicle, initial encounter for closed fracture Code(s): S42.033A - Displaced fracture of lateral end of unspecified clavicle, initial encounter for closed fracture Status: Acute Assessment and Plan: Patient with mechanical fall to right shoulder * Imaging: Acute mildly displaced fracture of the distal right clavicle * Pain control * Sling placed * Ortho consulted * PT/OT uses walker for ambulation may need rehab for placement 06/24/24: * Seen by ortho no surgical intervention F/U O/P in their clinic * Tib/FIb with no acute fractures 06/25: * doppler pending still reporting a lot of pain to RLE 06/26: * Doppler negative (2) Fracture of scapular body: Qualifiers: Encounter type: initial encounter Fracture alignment: nondisplaced Fracture type: closed Laterality: right Qualified Code(s): S42.114A - Nondisplaced fracture of body of scapula, right shoulder, initial encounter for closed fracture Code(s): S42.113A - Displaced fracture of body of scapula, unspecified shoulder, initial encounter for closed fracture Status: Acute Assessment and Plan: SEE ABOVE (3) Alcohol abuse: Code(s): F10.10 - Alcohol abuse, uncomplicated Status: Acute Assessment and Plan: * Last drink 48hrs * Thiamine, folic acid, and multi-vitamin * PPI daily * librium if indicated * Ativan PRN for seizure activity * CIWA daily * Monitor and replenish electrolytes as needed (4) Hyperlipidemia: Qualifiers: Hyperlipidemia type: mixed hyperlipidemia Qualified Code(s): E78.2 - Mixed hyperlipidemia Code(s): E78.5 - Hyperlipidemia, unspecified Status: Acute Assessment and Plan: * Resume statin (5) Arthritis: Code(s): M19.90 - Unspecified osteoarthritis, unspecified site Status: Acute Assessment and Plan: * Resumed Baclofen (6) Fall from ground level: Code(s): W18.30XA - Fall on same level, unspecified, initial encounter Status: Acute Assessment and Plan: * Mechanical fall * PT/OT (7) COPD (chronic obstructive pulmonary disease): Qualifiers: COPD type: unspecified COPD Qualified Code(s): J44.9 - Chronic obstructive pulmonary disease, unspecified Code(s): J44.9 - Chronic obstructive pulmonary disease, unspecified Status: Acute Assessment and Plan: * Resume PRN inhalers (8) Tobacco abuse: Code(s): Z72.0 - Tobacco use Status: Acute Assessment and Plan: * smoking cessation education * Nicotine patch * remove patch at night Plan Code status: Full code per patient DVT prophylaxis: SCD Stress ulcer prophylaxis: Protonix 40 daily PT/OT notes: PT/OT pending Disposition: Patient admitted to the medical unit for evaluation by PT/OT after a fall at home with a right clavicle fracture patient uses walker for ambulation some concern he will be unable to care for self care coordination has been consulted for possible rehab placement. Time Spent With Patient Time with patient: 15 - 25 minutes Subjective Date/time seen: 06/26/24 10:32 Interval history: Patient admitted for fall with right clavicle fracture 06/26/24: Patient with no complaints still with mild to moderate pain the left lower extremity Dopplers were negative for PE all imaging negative for fracture will continue work with PT. patient denied any chest pain, shortness a breath, nausea, fever or chills. Waiting on Rehab placement Review of Systems Review of Systems: All systems reviewed & are unremarkable except as noted in HPI and below Exam Const: General: comfortable HENMT: Mouth: Yes moist mucous membranes Eyes: General: appearance normal, both eyes and all related structures Pupils: Equal, round and reactive pupils present Neck: Neck: supple and no JVD Resp: Effort & Inspection: normal respiratory effort Cardio: Rate: regular rate Rhythm: regular rhythm GI: Auscultation: normal bowel sounds Skin: General skin exam: normal color, no rashes or lesions noted and wounds noted (Elbow) Wounds: wounds noted (Elbow) Neuro: Cranial nerves: Yes Equal, round and reactive pupils present Speech: normal speech Motor exam (neuro): Abnormal motor strength present Other: Unsteady gait uses walker for ambulation Extrem: Other: Sling to right arm Psych: Mental Status: mental status grossly normal Objective Data Vital Signs Vital Signs: Vital Signs - 24 hr 06/25/24 14:00 06/25/24 20:00 06/25/24 21:49 Temperature 97.7 F 99.0 F Pulse Rate 79 72 72 Respiratory Rate 12 16 16 Blood Pressure 109/65 102/74 Pulse Oximetry 96 97 97 Oxygen Delivery Room Air 06/26/24 06:00 06/26/24 08:45 Temperature 97.8 F Pulse Rate 77 Respiratory Rate 16 Blood Pressure 136/68 Pulse Oximetry 98 Oxygen Delivery Room Air Intake/Output Intake/Output: Intake & Output 06/23/24 06/24/24 06/25/24 06/26/24 23:59 23:59 23:59 23:59 Intake Total 580 1210 970 240 Output Total 300 1150 875 600 Balance 280 60 95 -360 Meds/Results Medications: Active Medications Generic Name Dose Route Start Last Admin Trade Name Freq PRN Reason Stop Dose Admin Acetaminophen 650 mg 06/23/24 04:06 Acetaminophen 325 Mg Tablet PO Q4H PRN Mild Pain (1-3) or Fever Hydrocodone Bitart/Acetaminophen 1 tab 06/23/24 04:06 06/26/24 10:19 Hydrocodone/Acetaminophen (*Crx) 5-325 Mg Tablet PO 1 tab Q4H PRN Administration Pain Rated 4-6 Albuterol 1 puff 06/24/24 07:37 06/24/24 09:37 Albuterol Sulfate (*Sp) Aerosol 1 Puff INHALATION 1 puff Q4H PRN Administration shortness of breath or wheezing Dextrose 12.5 gm 06/23/24 04:06 Dextrose 50% 25 Gm/50 Ml Syringe IV PUSH PRN PRN Hypoglycemia Protocol Folic Acid 1 mg 06/24/24 09:00 06/26/24 08:39 Folic Acid 1 Mg Tablet PO 1 mg DAILY LINDSAY Administration Glucagon 1 mg 06/23/24 04:06 Glucagon For Inj 1 Mg Vial IM PRN PRN Hypoglycemia Protocol Glucose 15 gm 06/23/24 04:06 Glucose Oral Gel 15 Gm Of Glucse In 37.5 Gm Tube PO PRN PRN Hypoglycemia Protocol Hydroxyzine HCl 25 mg 06/24/24 07:37 Hydroxyzine Hcl 25 Mg Tablet PO QHS PRN insomnia Dextrose 1,000 mls @ 100 mls/hr 06/23/24 04:06 Dextrose 5% 1,000 Ml IVPB PRN PRN Hypoglycemia Protocol Lovastatin 40 mg 06/24/24 09:00 06/26/24 08:39 Lovastatin 20 Mg Tablet PO 40 mg DAILY LINDSAY Administration Morphine Sulfate 2 mg 06/23/24 04:06 06/25/24 10:19 Morphine Sulfate (*Crx) 2 Mg/Ml Inj IV PUSH 2 mg Q2H PRN Administration Pain Rated 7-10 Nicotine 1 patch 06/23/24 09:00 06/26/24 08:39 Nicotine (*Pbkc) 21 Mg Patch TRANSDERM 1 patch DAILY LINDSAY Administration Pantoprazole Sodium 40 mg 06/23/24 09:00 06/26/24 08:39 Pantoprazole 40 Mg Tablet PO 40 mg QAM LINDSAY Administration Polyethylene Glycol 17 gm 06/23/24 09:00 06/26/24 08:39 Polyethylene Glycol 3350 17 Gm Powd.Pack PO 17 gm QAM LINDSAY Administration Senna/Docusate Sodium 1 tab 06/23/24 21:00 06/25/24 21:01 Senna/Docusate Sodium Tablet PO 1 tab HS LINDSAY Administration Thiamine HCl 100 mg 06/24/24 09:00 06/26/24 08:39 Thiamine Hcl 100 Mg Tablet PO 100 mg DAILY LINDSAY Administration Radiology Results: ITS Impressions Shoulder X-Ray 06/23/24 06:17 Impression: Acute mildly displaced fracture of the distal right clavicle. Cervical Spine CT 06/23/24 06:20 Impression: No fracture or subluxation of the cervical spine. Acute fracture of the distal right clavicle, as detailed above. Severe degenerative spondylosis, as above. Head CT 06/23/24 06:22 Impression: No significant abnormality seen. Elbow X-Ray 06/23/24 06:23 Impression: Unremarkable radiographs. Chest CT 06/23/24 06:40 Impression: Partially imaged acute fracture of the distal right clavicle. Pectus excavatum deformity. Tibia/Fibula X-Ray 06/23/24 13:19 Impression: Unremarkable right tib-fib radiographs. Shoulder CT 06/23/24 18:00 IMPRESSION: Comminuted, mildly displaced and angulated extra-articular fracture of the distal clavicle, with likely avulsion of the origin of the coracoclavicular ligament. Hip/Pelvis X-Ray 06/24/24 12:14 IMPRESSION: No acute osseous abnormality pelvis and right hip. Bilateral severe hip osteoarthritic changes Venous Doppler Study 06/25/24 14:21 IMPRESSION: Negative right lower extremity venous US. No deep vein thrombosis. Labs Labs: Laboratory Results - last 24 hr 06/26/24 04:51 WBC 4.6 RBC 4.16 L Hgb 13.0 L Hct 41.0 L MCV 98.6 MCH 31.3 MCHC 31.7 L RDW 13.8 Plt Count 147 L MPV 10.2 Sodium 134 L Potassium 4.8 Chloride 100 Carbon Dioxide 25 Anion Gap 9 BUN 16 Creatinine 0.77 Estim Creat Clear Calc 70 Estimated GFR > 60 Glucose 93 Calcium 9.3 Total Bilirubin 0.9 AST 49 ALT 52 H Alkaline Phosphatase 115 Total Protein 7.0 Albumin 3.7 Quality VTE Prophylaxis VTE prophylaxis: mechanical ordered -Patient's previous records reviewed on admission -ER notes reviewed in detail on admission -discussed all findings and current treatment plan with patient/Family/POA -Consultations reviewed for recommendations -Patient's disposition for safe discharge discussed with case finishing machine adjuster Dictation performed by [employer] direct speech recognition software, therefore radio disc jockey variants and typographical errors may occur. Hospitalist MIPS Advance Care Plan I have confirmed that the patient's Advanced Care Plan is present, code status is documented, or surrogate decision maker is listed in patient medical record.: Yes Medication Reconciliation I have utilized all available resources to obtain, update and review the patients current medications (includes all prescriptions, OTC, herbals, cannabis, and nutritional supplements).: Yes The patient is not eligible for med reconciliation; the patient is in a emergent medical situation where delaying treatment would jeopardize the patients health.: No
[2024-06-26 14:00] VITALS: BP 104/57; PULSE 74; RESP 16; TEMP 36.9; O2SAT 94
[2024-06-26 21:53] VITALS: BP 101/57; PULSE 68; RESP 16; TEMP 37.2; O2SAT 92
[2024-06-27 05:49] LABS: Hemoglobin 12.5 g/dL (14.0-18.0); Mean Corpuscular HGB Conc 33.8 g/dl (32-36); Mean Corpuscular Hemoglobin 31.4 pg (26-34); Platelet Count Result 204 k/mm3 (150-375); Red Blood Count 3.98 M/mm3 (4.6-6.20); Red Cell Distribution Width 13.6 % (11.5-14.5); White Blood Count 6.5 K/mm3 (4.5-10.0)
[2024-06-27 06:00] LABS: Alanine Aminotransferase 48 U/L (6-50); Albumin Level 3.6 g/dL (3.5-5.1); Alkaline Phosphatase 138 U/L (38-126); Anion Gap 9 mmol/L (4-12); Aspartate Amino Transferase 42 U/L (17-59); Bilirubin,Total 0.8 mg/dL (0.2-1.3); Blood Urea Nitrogen 25 mg/dL (9-20); Calcium 9.5 mg/dL (8.4-10.2); Carbon Dioxide 24 mmol/L (22-30); Chloride 101 mmol/L (98-107); Estimated CRCL calculation 72 ml/min; Estimated Glomerular Filt Rate > 60; Glucose 105 mg/dL (65-110); Potassium 4.2 mmol/L (3.4-5.0); Sodium 134 mmol/L (137-145)
[2024-06-27 06:30] VITALS: BP 115/61; PULSE 73; RESP 18; TEMP 36.7; O2SAT 91
[2024-06-27] MEDS: HYDROcodone/acetaminophen (*CRX) 5-325 MG TABLET 1 TAB PO (06:41)
--- NOTE | 2024-06-27 08:25 | P.PNIM_ITS ---
Progress Note: A&P Assessment and Plan (1) Closed fracture of distal clavicle: Qualifiers: Encounter type: initial encounter Fracture alignment: displaced Laterality: right Qualified Code(s): S42.031A - Displaced fracture of lateral end of right clavicle, initial encounter for closed fracture Code(s): S42.033A - Displaced fracture of lateral end of unspecified clavicle, initial encounter for closed fracture Status: Acute Assessment and Plan: Patient with mechanical fall to right shoulder * Imaging: Acute mildly displaced fracture of the distal right clavicle * Pain control * Sling placed Ortho consulted. Seen by Ortho. No surgical intervention follow-up outpatient in the clinic. * PT/OT uses walker for ambulation may need rehab for placement * Tib/FIb with no acute fractures Right lower extremity Doppler negative (2) Fracture of scapular body: Qualifiers: Encounter type: initial encounter Fracture alignment: nondisplaced Fracture type: closed Laterality: right Qualified Code(s): S42.114A - Nondisplaced fracture of body of scapula, right shoulder, initial encounter for closed fracture Code(s): S42.113A - Displaced fracture of body of scapula, unspecified shoulder, initial encounter for closed fracture Status: Acute Assessment and Plan: SEE ABOVE (3) Alcohol abuse: Code(s): F10.10 - Alcohol abuse, uncomplicated Status: Acute Assessment and Plan: * Thiamine, folic acid, and multi-vitamin * PPI daily * librium if indicated * Ativan PRN for seizure activity * CIWA daily * Monitor and replenish electrolytes as needed (4) Hyperlipidemia: Qualifiers: Hyperlipidemia type: mixed hyperlipidemia Qualified Code(s): E78.2 - Mixed hyperlipidemia Code(s): E78.5 - Hyperlipidemia, unspecified Status: Acute Assessment and Plan: * Resume statin (5) Arthritis: Code(s): M19.90 - Unspecified osteoarthritis, unspecified site Status: Acute Assessment and Plan: * Resumed Baclofen (6) Fall from ground level: Code(s): W18.30XA - Fall on same level, unspecified, initial encounter Status: Acute Assessment and Plan: * Mechanical fall * PT/OT (7) COPD (chronic obstructive pulmonary disease): Qualifiers: COPD type: unspecified COPD Qualified Code(s): J44.9 - Chronic obstructive pulmonary disease, unspecified Code(s): J44.9 - Chronic obstructive pulmonary disease, unspecified Status: Acute Assessment and Plan: * Resume PRN inhalers (8) Tobacco abuse: Code(s): Z72.0 - Tobacco use Status: Acute Assessment and Plan: * smoking cessation education * Nicotine patch * remove patch at night Plan Code status: Full code per patient DVT prophylaxis: SCD Stress ulcer prophylaxis: Protonix 40 daily PT/OT notes: PT/OT pending Disposition: Patient admitted to the medical unit for evaluation by PT/OT after a fall at home with a right clavicle fracture patient uses walker for ambulation some concern he will be unable to care for self care coordination has been consulted for possible rehab placement. Subjective Date/time seen: 06/27/24 08:25 Interval history: No overnight events. Pain control. Working with therapy. No shortness of breath or chest pain. Waiting for placement. Review of Systems Review of Systems: All systems reviewed & are unremarkable except as noted in HPI and below Exam Narrative: Const: General: comfortable HENMT: Mouth: Yes moist mucous membranes Eyes: General: appearance normal, both eyes and all related structures Pupils: Equal, round and reactive pupils present Neck: Neck: supple and no JVD Resp: Effort & Inspection: normal respiratory effort Cardio: Rate: regular rate Rhythm: regular rhythm GI: Auscultation: normal bowel sounds Skin: General skin exam: normal color, no rashes or lesions noted and wounds noted (Elbow) Wounds: wounds noted (Elbow)Neuro: Cranial nerves: Yes Equal, round and reactive pupils present Speech: normal speech Motor exam (neuro): Abnormal motor strength present Other: unsteady gait uses walker for ambulation Extrem: Other: Sling to right arm Psych: Mental Status: mental status grossly normal Objective Data Vital Signs Vital Signs: Vital Signs - 24 hr 06/26/24 08:45 06/26/24 14:00 06/26/24 20:56 Temperature 98.5 F Pulse Rate 74 Respiratory Rate 16 Blood Pressure 104/57 L Pulse Oximetry 94 Oxygen Delivery Room Air Room Air 06/26/24 21:53 06/27/24 06:30 Temperature 98.9 F 98.0 F Pulse Rate 68 73 Respiratory Rate 16 18 Blood Pressure 101/57 L 115/61 Pulse Oximetry 92 91 Oxygen Delivery Intake/Output Intake/Output: Intake & Output 06/24/24 06/25/24 06/26/24 06/27/24 23:59 23:59 23:59 23:59 Intake Total 1210 970 720 200 Output Total 1355 961 3971 1000 Balance 60 95 -1480 -800 Meds/Results Medications: Active Medications Generic Name Dose Route Start Last Admin Trade Name Freq PRN Reason Stop Dose Admin Acetaminophen 650 mg 06/23/24 04:06 Acetaminophen 325 Mg Tablet PO Q4H PRN Mild Pain (1-3) or Fever Hydrocodone Bitart/Acetaminophen 1 tab 06/23/24 04:06 06/27/24 06:41 Hydrocodone/Acetaminophen (*Crx) 5-325 Mg Tablet PO 1 tab Q4H PRN Administration Pain Rated 4-6 Albuterol 1 puff 06/24/24 07:37 06/24/24 09:37 Albuterol Sulfate (*Sp) Aerosol 1 Puff INHALATION 1 puff Q4H PRN Administration shortness of breath or wheezing Dextrose 12.5 gm 06/23/24 04:06 Dextrose 50% 25 Gm/50 Ml Syringe IV PUSH PRN PRN Hypoglycemia Protocol Folic Acid 1 mg 06/24/24 09:00 06/26/24 08:39 Folic Acid 1 Mg Tablet PO 1 mg DAILY LINDSAY Administration Glucagon 1 mg 06/23/24 04:06 Glucagon For Inj 1 Mg Vial IM PRN PRN Hypoglycemia Protocol Glucose 15 gm 06/23/24 04:06 Glucose Oral Gel 15 Gm Of Glucse In 37.5 Gm Tube PO PRN PRN Hypoglycemia Protocol Hydroxyzine HCl 25 mg 06/24/24 07:37 Hydroxyzine Hcl 25 Mg Tablet PO QHS PRN insomnia Dextrose 1,000 mls @ 100 mls/hr 06/23/24 04:06 Dextrose 5% 1,000 Ml IVPB PRN PRN Hypoglycemia Protocol Lovastatin 40 mg 06/24/24 09:00 06/26/24 08:39 Lovastatin 20 Mg Tablet PO 40 mg DAILY LINDSAY Administration Morphine Sulfate 2 mg 06/23/24 04:06 06/25/24 10:19 Morphine Sulfate (*Crx) 2 Mg/Ml Inj IV PUSH 2 mg Q2H PRN Administration Pain Rated 7-10 Nicotine 1 patch 06/23/24 09:00 06/26/24 08:39 Nicotine (*Pbkc) 21 Mg Patch TRANSDERM 1 patch DAILY LINDSAY Administration Pantoprazole Sodium 40 mg 06/23/24 09:00 06/26/24 08:39 Pantoprazole 40 Mg Tablet PO 40 mg QAM LINDSAY Administration Polyethylene Glycol 17 gm 06/23/24 09:00 06/26/24 08:39 Polyethylene Glycol 3350 17 Gm Powd.Pack PO 17 gm QAM LINDSAY Administration Senna/Docusate Sodium 1 tab 06/23/24 21:00 06/26/24 20:55 Senna/Docusate Sodium Tablet PO Not Given HS [facility] Thiamine HCl 100 mg 06/24/24 09:00 06/26/24 08:39 Thiamine Hcl 100 Mg Tablet PO 100 mg DAILY LINDSAY Administration Radiology Results: ITS Impressions Shoulder X-Ray 06/23/24 06:17 Impression: Acute mildly displaced fracture of the distal right clavicle. Cervical Spine CT 06/23/24 06:20 Impression: No fracture or subluxation of the cervical spine. Acute fracture of the distal right clavicle, as detailed above. Severe degenerative spondylosis, as above. Head CT 06/23/24 06:22 Impression: No significant abnormality seen. Elbow X-Ray 06/23/24 06:23 Impression: Unremarkable radiographs. Chest CT 06/23/24 06:40 Impression: Partially imaged acute fracture of the distal right clavicle. Pectus excavatum deformity. Tibia/Fibula X-Ray 06/23/24 13:19 Impression: Unremarkable right tib-fib radiographs. Shoulder CT 06/23/24 18:00 IMPRESSION: Comminuted, mildly displaced and angulated extra-articular fracture of the distal clavicle, with likely avulsion of the origin of the coracoclavicular ligament. Hip/Pelvis X-Ray 06/24/24 12:14 IMPRESSION: No acute osseous abnormality pelvis and right hip. Bilateral severe hip osteoarthritic changes Venous Doppler Study 06/25/24 14:21 IMPRESSION: Negative right lower extremity venous US. No deep vein thrombosis. Labs Labs: Laboratory Results - last 24 hr 06/27/24 04:52 WBC 6.5 RBC 3.98 L Hgb 12.5 L Hct 37.0 L MCV 93.0 D MCH 31.4 MCHC 33.8 RDW 13.6 Plt Count 204 MPV 9.0 Sodium 134 L Potassium 4.2 Chloride 101 Carbon Dioxide 24 Anion Gap 9 BUN 25 H Creatinine 0.75 Estim Creat Clear Calc 72 Estimated GFR > 60 Glucose 105 Calcium 9.5 Total Bilirubin 0.8 AST 42 ALT 48 Alkaline Phosphatase 138 H Total Protein 7.0 Albumin 3.6
[2024-06-27] MEDS: PANTOPRAZOLE 40 MG TABLET PO (09:08)
[2024-06-27] MEDS: LOVASTATIN 20 MG TABLET 40 MG PO (09:08)
[2024-06-27] MEDS: THIAMINE HCL 100 MG TABLET PO (09:08)
[2024-06-27] MEDS: FOLIC ACID 1 MG TABLET PO (09:09)
[2024-06-27] MEDS: NICOTINE (*PBKC) 21 MG PATCH 1 PATCH TRANSDERM (09:09)
[2024-06-27 14:00] VITALS: BP 112/68; PULSE 68; RESP 18; TEMP 36.6; O2SAT 92
--- NOTE | 2024-06-27 15:27 | P.DS_ITS ---
DS: Admitting Diagnosis Discharge Date 06/27/2024 Admitting Diagnosis fall DS: Discharge Diagnosis Discharge Diagnosis (1) Closed fracture of distal clavicle: Qualifiers: Encounter type: initial encounter Fracture alignment: displaced Laterality: right Qualified Code(s): S42.031A - Displaced fracture of lateral end of right clavicle, initial encounter for closed fracture Code(s): S42.033A - Displaced fracture of lateral end of unspecified clavicle, initial encounter for closed fracture Status: Acute (2) Fracture of scapular body: Qualifiers: Encounter type: initial encounter Fracture alignment: nondisplaced Fracture type: closed Laterality: right Qualified Code(s): S42.114A - Nondisplaced fracture of body of scapula, right shoulder, initial encounter for closed fracture Code(s): S42.113A - Displaced fracture of body of scapula, unspecified shoulder, initial encounter for closed fracture Status: Acute (3) Alcohol abuse: Code(s): F10.10 - Alcohol abuse, uncomplicated Status: Acute (4) Hyperlipidemia: Qualifiers: Hyperlipidemia type: mixed hyperlipidemia Qualified Code(s): E78.2 - Mixed hyperlipidemia Code(s): E78.5 - Hyperlipidemia, unspecified Status: Acute (5) Arthritis: Code(s): M19.90 - Unspecified osteoarthritis, unspecified site Status: Acute (6) Fall from ground level: Code(s): W18.30XA - Fall on same level, unspecified, initial encounter Status: Acute (7) COPD (chronic obstructive pulmonary disease): Qualifiers: COPD type: unspecified COPD Qualified Code(s): J44.9 - Chronic obstructive pulmonary disease, unspecified Code(s): J44.9 - Chronic obstructive pulmonary disease, unspecified Status: Acute (8) Tobacco abuse: Code(s): Z72.0 - Tobacco use Status: Acute DS: Summary Hospital Course Hospital Course: 1) Closed fracture of distal clavicle: Qualifiers: Encounter type: initial encounter Fracture alignment: displaced Laterality: right Qualified Code(s): S42.031A - Displaced fracture of lateral end of right clavicle, initial encounter for closed fracture Code(s): S42.033A - Displaced fracture of lateral end of unspecified clavicle, initial encounter for closed fracture Status: Acute Assessment and Plan: Patient with mechanical fall to right shoulder * Imaging: Acute mildly displaced fracture of the distal right clavicle * Pain control * Sling placedOrtho consulted. Seen by Ortho. No surgical intervention follow- up outpatient in the clinic. * PT/OT uses walker for ambulation may need rehab for placement * Tib/FIb with no acute fracturesRight lower extremity Doppler negative (2) Fracture of scapular body: Qualifiers: Encounter type: initial encounter Fracture alignment: nondisplaced Fracture type: closed Laterality: right Qualified Code(s): S42.114A - Nondisplaced fracture of body of scapula, right shoulder, initial encounter for closed fracture Code(s): S42.113A - Displaced fracture of body of scapula, unspecified shoulder, initial encounter for closed fracture Status: Acute Assessment and Plan: SEE ABOVE (3) Alcohol abuse: Code(s): F10.10 - Alcohol abuse, uncomplicated Status: Acute Assessment and Plan: * Thiamine, folic acid, and multi-vitamin * PPI daily * librium if indicated * Ativan PRN for seizure activity * CIWA daily * Monitor and replenish electrolytes as needed (4) Hyperlipidemia: Qualifiers: Hyperlipidemia type: mixed hyperlipidemia Qualified Code(s): E78.2 - Mixed hyperlipidemia Code(s): E78.5 - Hyperlipidemia, unspecified Status: Acute Assessment and Plan: * Resume statin (5) Arthritis: Code(s): M19.90 - Unspecified osteoarthritis, unspecified site Status: Acute Assessment and Plan: * Resumed Baclofen (6) Fall from ground level: Code(s): W18.30XA - Fall on same level, unspecified, initial encounter Status: Acute Assessment and Plan: * Mechanical fall * PT/OT (7) COPD (chronic obstructive pulmonary disease): Qualifiers: COPD type: unspecified COPD Qualified Code(s): J44.9 - Chronic obstructive pulmonary disease, unspecified Code(s): J44.9 - Chronic obstructive pulmonary disease, unspecified Status: Acute Assessment and Plan: * Resume PRN inhalers (8) Tobacco abuse: Code(s): Z72.0 - Tobacco use Status: Acute Assessment and Plan: * smoking cessation education * Nicotine patch * remove patch at night Plan Code status: Full code per patient DVT prophylaxis: SCD Stress ulcer prophylaxis: Protonix 40 daily PT/OT notes: PT/OT pending Disposition: Patient admitted to the medical unit for evaluation by PT/OT after a fall at home with a right clavicle fracture patient uses walker for ambulation some concern he will be unable to care for self care coordination has been consulted for possible rehab placement. patient will be transferred to [facility] for further rehabilitation this was arranged prior to discahrge. Time Spent with Patient Time attestation: Total time spent providing and/or coordinating discharge services: Exam Narrative: Const: General: comfortable HENMT: Mouth: Yes moist mucous membranes Eyes: General: appearance normal, both eyes and all related structures Pupils: Equal, round and reactive pupils present Neck: Neck: supple and no JVD Resp: Effort & Inspection: normal respiratory effort Cardio: Rate: regular rate Rhythm: regular rhythm GI: Auscultation: normal bowel sounds Skin: General skin exam: normal color, no rashes or lesions noted and wounds noted (Elbow) Wounds: wounds noted (Elbow)Neuro: Cranial nerves: Yes Equal, round and reactive pupils present Speech: normal speech Motor exam (neuro): Abnormal motor strength present Other: unsteady gait uses walker for ambulation Extrem: Other: Sling to right arm Psych: Mental Status: mental status grossly normal DS: Data Data Completed and Pending Labs on day of discharge: Labs from last 24 hours 06/27/24 04:52 WBC 6.5 RBC 3.98 L Hgb 12.5 L Hct 37.0 L MCV 93.0 D MCH 31.4 MCHC 33.8 RDW 13.6 Plt Count 204 MPV 9.0 Sodium 134 L Potassium 4.2 Chloride 101 Carbon Dioxide 24 Anion Gap 9 BUN 25 H Creatinine 0.75 Estim Creat Clear Calc 72 Estimated GFR > 60 Glucose 105 Calcium 9.5 Total Bilirubin 0.8 AST 42 ALT 48 Alkaline Phosphatase 138 H Total Protein 7.0 Albumin 3.6 Imaging Radiologist's impression: ITS Impressions Shoulder X-Ray 06/23/24 06:17 Impression: Acute mildly displaced fracture of the distal right clavicle. Cervical Spine CT 06/23/24 06:20 Impression: No fracture or subluxation of the cervical spine. Acute fracture of the distal right clavicle, as detailed above. Severe degenerative spondylosis, as above. Head CT 06/23/24 06:22 Impression: No significant abnormality seen. Elbow X-Ray 06/23/24 06:23 Impression: Unremarkable radiographs. Chest CT 06/23/24 06:40 Impression: Partially imaged acute fracture of the distal right clavicle. Pectus excavatum deformity. Tibia/Fibula X-Ray 06/23/24 13:19 Impression: Unremarkable right tib-fib radiographs. Shoulder CT 06/23/24 18:00 IMPRESSION: Comminuted, mildly displaced and angulated extra-articular fracture of the distal clavicle, with likely avulsion of the origin of the coracoclavicular ligament. Hip/Pelvis X-Ray 06/24/24 12:14 IMPRESSION: No acute osseous abnormality pelvis and right hip. Bilateral severe hip osteoarthritic changes Venous Doppler Study 06/25/24 14:21 IMPRESSION: Negative right lower extremity venous US. No deep vein thrombosis. Discharge Plan Discharge Attending physician on discharge: Travis Lacey Consulting providers: Nader Saenz Discharging Clinician: Travis Lacey Anticipated Discharge Date/Time: 06/27/24 15:27 Patient Disposition: SNF Activity: may shower, no driving and follow weight bearing status Diet: as tolerated and regular Discharge Instructions: Orthopedic Recommendations Dr. Nader Saenz [phone] * Sling right upper extremity. * Ice. Pain control. * Non-weight bearing. * Okay for gentle ROM exercises of the elbow, wrist, hand/cloud engagement partner strengthening. Limit abduction. * Follow up in 4-6 weeks in the outpatient orthopedic clinic. Patient Language: Wallisian Stand Alone Forms: General Discharge Information Follow-up/Referrals: Nader Saenz MD [Physician] - 07/19/24 9:15 am (4-6 weeks. ) Pamela Burrows MD [Primary Care Provider] - 1 Week Discharge Medications: New sennosides-docusate sodium [Senokot-S] 8.6-50 mg Tablet 1 tab PO HS Qty: 30 0RF polyethylene glycol 3350 [Miralax] 17 gram Powder In Packet 17 g PO QAM Qty: 3 0RF Continued lovastatin 40 mg tablet 40 mg PO DAILY Qty: 90 3RF hydroxyzine HCl 25 mg tablet 25 mg PO QHS PRN (Reason: insomnia) Qty: 90 1RF folic acid 1 mg tablet 1 mg PO DAILY Qty: 90 1RF thiamine HCl (vitamin B1) 100 mg tablet 100 mg PO DAILY Qty: 90 1RF budesonide-formoterol [Symbicort] 160-4.5 mcg/actuation HFA aerosol inhaler 2 puff inhalation Q12H Qty: 10.2 2RF albuterol sulfate 90 mcg/actuation HFA aerosol inhaler 1 inh inhalation Q4H PRN (Reason: shortness of breath or wheezing) Qty: 8.5 3RF Discontinued aspirin 81 mg tablet,delayed release (DR/EC) 81 mg PO DAILY Qty: 90 3RF Date of admission: 06/23/24 12:51 Primary Care Provider: Pamela Burrows Admitting Provider: Brigitte Terrazas Attending physician on admission: Vaishali Sanchez Condition: Stable
--- NOTE | 2024-06-27 16:06 | P.DS_ITS ---
DS: Summary Time Spent with Patient Time attestation: Total time spent providing and/or coordinating discharge services: DS: Data Data Completed and Pending Labs on day of discharge: Labs from last 24 hours 06/27/24 04:52 WBC 6.5 RBC 3.98 L Hgb 12.5 L Hct 37.0 L MCV 93.0 D MCH 31.4 MCHC 33.8 RDW 13.6 Plt Count 204 MPV 9.0 Sodium 134 L Potassium 4.2 Chloride 101 Carbon Dioxide 24 Anion Gap 9 BUN 25 H Creatinine 0.75 Estim Creat Clear Calc 72 Estimated GFR > 60 Glucose 105 Calcium 9.5 Total Bilirubin 0.8 AST 42 ALT 48 Alkaline Phosphatase 138 H Total Protein 7.0 Albumin 3.6 Discharge Plan Discharge Attending physician on discharge: Travis Lacey Consulting providers: Nader Saenz Discharging Clinician: Travis Lacey Anticipated Discharge Date/Time: 06/27/24 15:27 Patient Disposition: SNF Activity: may shower, no driving and follow weight bearing status Diet: as tolerated and regular Discharge Instructions: Orthopedic Recommendations Dr. Nader Saenz [phone] * Sling right upper extremity. * Ice. Pain control. * Non-weight bearing. * Okay for gentle ROM exercises of the elbow, wrist, hand/security sergeant strengthening. Limit abduction. * Follow up in 4-6 weeks in the outpatient orthopedic clinic. Patient Language: Yoruba Stand Alone Forms: General Discharge Information Follow-up/Referrals: Nader Saenz MD [Physician] - 07/19/24 9:15 am (4-6 weeks. ) Pamela Burrows MD [Primary Care Provider] - 1 Week Discharge Medications: New hydrocodone-acetaminophen 5-325 mg Tablet 1 tablet PO Q4H PRN (Reason: Pain Rated 4-6) Qty: 15 0RF sennosides-docusate sodium [Senokot-S] 8.6-50 mg Tablet 1 tab PO HS Qty: 30 0RF polyethylene glycol 3350 [Miralax] 17 gram Powder In Packet 17 g PO QAM Qty: 3 0RF Continued lovastatin 40 mg tablet 40 mg PO DAILY Qty: 90 3RF hydroxyzine HCl 25 mg tablet 25 mg PO QHS PRN (Reason: insomnia) Qty: 90 1RF folic acid 1 mg tablet 1 mg PO DAILY Qty: 90 1RF thiamine HCl (vitamin B1) 100 mg tablet 100 mg PO DAILY Qty: 90 1RF budesonide-formoterol [Symbicort] 160-4.5 mcg/actuation HFA aerosol inhaler 2 puff inhalation Q12H Qty: 10.2 2RF albuterol sulfate 90 mcg/actuation HFA aerosol inhaler 1 inh inhalation Q4H PRN (Reason: shortness of breath or wheezing) Qty: 8.5 3RF Discontinued aspirin 81 mg tablet,delayed release (DR/EC) 81 mg PO DAILY Qty: 90 3RF Date of admission: 06/23/24 12:51 Primary Care Provider: Pamela Burrows Admitting Provider: Brigitte Terrazas Attending physician on admission: Vaishali Sanchez Condition: Stable
== END 2024-06-27 17:25 | DRG 563 ==
LOC: ANHED 06-23 03:49 → ANH3MEDSUR 06-23 05:11 → ANH2MED 06-23 05:16
PROVIDERS: Nurse Practitioner Family; Admitting Provider Internal Medicine; Emergency Provider Physician Assistant; PCP Family Medicine; Visit Provider Internal Medicine
DX: S42.031A Displaced fracture of lateral end of right clavicle, initial encounter for closed fracture (principal); S42.114A Nondisplaced fracture of body of scapula, right shoulder, initial encounter for closed fracture; W01.0XXA Fall on same level from slipping, tripping and stumbling without subsequent striking against object, initial encounter; F10.10 Alcohol abuse, uncomplicated; E78.2 Mixed hyperlipidemia; M19.90 Unspecified osteoarthritis, unspecified site; J44.9 Chronic obstructive pulmonary disease, unspecified; F17.210 Nicotine dependence, cigarettes, uncomplicated; Z86.73 Personal history of transient ischemic attack (TIA), and cerebral infarction without residual deficits
CPT/HCPCS: 36415; 70450; 71250; 72125; 73030; 73070; 73200; 73502; 73590; 80053; 85025; 85027; 90471; 90715; 93971; 94640; 96374; 96375; 96376; 97110; 97161; 97166; 97530; 97535; 99285; A4565; A9270; G0378; J2270; J2405